=== PATIENT | male | born 1965 | race Caucasian/White ===

== ENCOUNTER → 2018-06-09 | Outpatient (REF) ==
[~2018-06-09] MED LIST: CYCL10TA29 PO; PRE200PT PO; PRED20TA6 PO
--- NOTE | 2018-06-09 09:43 | RADIOLOGY IMAGING REPORT ---
FACILITY: [facility] - [place] PATIENT NAME: Robinson Greene : 1965 MR: [id number] V: [id number] EXAM DATE: ORDERING PHYSICIAN: TK SAENZ TECHNOLOGIST: Location: [facility] Patient: Robinson Greene : 1965 Visit/Account:[id number] Date of Sevice: 06/09/2018 Technique: CHEST PA AND LAT HISTORY: Shortness of breath COMPARISON: None available Findings: The lungs are clear. No pleural effusion or pneumothorax. The cardiomediastinal silhouett e is unremarkable. Impression: 1. No acute cardiopulmonary process. Report Dictated By: Romel Greenberg DO at 06/09/2018 9:39 AM Report E-Signed By: Romel Greenberg DO at 06/09/2018 9:40 AM WSN:[id number]
--- NOTE | 2018-06-09 09:50 | EKG ---
FACILITY: [facility] - [place] PATIENT NAME: CHET AKHTAR : [id number] MR: [id number] V: [id number] EXAM DATE: ORDERING PHYSICIAN: TK SAENZ TECHNOLOGIST: JAGDISH Test Reason : Blood Pressure : / mmHG Vent. Rate : 067 BPM Atrial Rate : 067 BPM P-R Int : 150 ms QRS Dur : 088 ms QT Int : 408 ms P-R-T Axes : 072 075 071 degrees QTc Int : 431 ms Normal sinus rhythm Normal ECG No previous ECGs available Confirmed by KEVEN GRAYSON ([id number]) on 06/09/2018 1:23:44 PM Referred By: LETTY Confirmed By:KEVEN GRAYSON
== END ==
LOC: RAD 09:09
PROVIDERS: ATTEND Registered Nurse Psychiatric/Mental Health
DX: R06.02 Shortness of breath (principal); F17.210 Nicotine dependence, cigarettes, uncomplicated
CPT/HCPCS: 71046; 93005

== ENCOUNTER → 2018-08-20 | Outpatient (REF) ==
--- NOTE | 2018-08-20 11:20 | RADIOLOGY IMAGING REPORT ---
FACILITY: [facility] PATIENT NAME: Robinson Greene : 1965 MR: [id number] V: [id number] EXAM DATE: ORDERING PHYSICIAN: JOVANY URIBE TECHNOLOGIST: Location: [facility] [place] Patient: Robinson Greene : 1965 Visit/Account:[id number] Date of Sevice: 08/20/2018 Exam type: KNEE 3 VIEW LEFT History: Left knee pain, low back pain Comparison: None. Findings: There is no evidence of acute fracture or dislocation involving the left knee. No significant arthri tic changes identified. Incidentally noted are mild vascular calcifications in the left popliteal fo ssa IMPRESSION: 1. No evidence of acute fracture dislocation or significant arthritic change involving the left knee Incidentally noted are mild vascular calcifications in the popliteal fossa Report Dictated By: Gaviota Clinton MD at 08/20/2018 11:09 AM Report E-Signed By: Gaviota Clinton MD at 08/20/2018 11:15 AM WSN:[email or web address]
--- NOTE | 2018-08-20 11:23 | RADIOLOGY IMAGING REPORT ---
FACILITY: [facility] PATIENT NAME: Robinson Greene : 1965 MR: [id number] V: [id number] EXAM DATE: ORDERING PHYSICIAN: JOVANY URIBE TECHNOLOGIST: Location: [facility] - [place], [place] Patient: Robinson Greene : 1965 Visit/Account:[id number] Date of Sevice: 08/20/2018 Exam type: LUMBAR SPINE 2 OR 3 VIEW History: Low back pain Comparison: None. 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 There are four nonrib-bearing lumbar-type vertebral bodies presen t. There is no evidence of acute fractures or subluxations. A small anterior osteophyte is noted al carmen the superior endplate of L1. IMPRESSION: 1. Minimal spondylotic changes of the lumbar spine as described above Report Dictated By: Gaviota Clinton MD at 08/20/2018 11:16 AM Report E-Signed By: Gaviota Clinton MD at 08/20/2018 11:20 AM WSN:[email or web address]
== END ==
LOC: RAD 09:46
PROVIDERS: ATTEND Orthopaedic Surgery Orthopaedic Surgery of the Spine
DX: M25.562 Pain in left knee (principal); M54.5 Low back pain
CPT/HCPCS: 72100